=== PATIENT | male | born 2000 | race Caucasian/White ===

== ENCOUNTER 2020-06-02 18:07 | Emergency (ER) | payer OTHER ==
[~2020-06-02] VITALS: Ht 193 cm; Wt 136.3 kg
[2020-06-02 18:15] VITALS: BP 157/76
--- NOTE | 2020-06-02 18:35 | PHYS DOC ---
Past Medical History Past Medical History: No Pertinent History Past Surgical History: No Surgical History Smoking Status: Never Smoker Alcohol Use: None Drug Use: None General Adult EDM: Chief Complaint: FOREIGNBODY EAR HPI: HPI: Patient is a 20-year-old male who presents with chief complaint of concern for foreign body in his left ear. 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 He states this occurred approximately 29 hours ago. He states that he has been irrigating with hydrogen peroxide. He states he was seen at urgent care facility yesterday who told him that he may still have retained foreign body. He states he does still have sensation of retained foreign body. Denies any ear pain. Denies hearing changes. Denies drainage from the ear. Denies fevers or vomiting. Denies headache. Denies using Q-tips or any objects to try remove the debris. Review of Systems: Review of Systems: Constitutional: Denies fever or chills. [] Eyes: Denies change in visual acuity. [] HENT: Denies nasal congestion or sore throat. [] Respiratory: Denies cough or shortness of breath. [] Cardiovascular: Denies chest pain or edema. [] GI: Denies abdominal pain, nausea, vomiting, bloody stools or diarrhea. [] : Denies dysuria. [] Musculoskeletal: Denies back pain or joint pain. [] Integument: Denies rash. [] Neurologic: Denies headache, focal weakness or sensory changes. [] Endocrine: Denies polyuria or polydipsia. [] Lymphatic: Denies swollen glands. [] Psychiatric: Denies depression or anxiety. [] Heart Score: Risk Factors: Risk Factors: DM, Current or recent (<one month) smoker, HTN, HLP, family history of CAD, obesity. Risk Scores: Score 0 - 3: 2.5% MACE over next 6 weeks - Discharge Home Score 4 - 6: 20.3% MACE over next 6 weeks - Admit for Clinical Observation Score 7 - 10: 72.7% MACE over next 6 weeks - Early Invasive Strategies Physical Exam: PE: Constitutional: Well developed, well nourished, no acute distress, non-toxic appearance. [] HENT: Normocephalic, atraumatic, bilateral external ears normal, oropharynx moist, no oral exudates, nose normal. External ear canal without any visualized foreign bodies. Tympanic membrane appears clear with positive light reflex. No signs of bulging. No erythema. No fluid behind the tympanic membrane. Eyes: PERRLA, EOMI, conjunctiva normal, no discharge. [] Neck: Normal range of motion, no tenderness, supple, no stridor. [] Cardiovascular:Heart rate regular rhythm, no murmur [] Lungs & Thorax: Bilateral breath sounds clear to auscultation [] Abdomen: soft, no tenderness, no masses, no pulsatile masses. [] Skin: Warm, dry, no erythema, no rash. [] Back: No tenderness, no CVA tenderness. [] Extremities: No tenderness, no cyanosis, no clubbing, ROM intact, no edema. [] Neurologic: Alert and oriented X 3, normal motor function, normal sensory function, no focal deficits noted. [] Psychologic: Affect normal, judgement normal, mood normal. [] Current Patient Data: Vital Signs: Vital Signs Date Time Temp Pulse Resp B/P (MAP) Pulse Ox O2 Delivery O2 Flow Rate FiO2 06/02/20 18:15 98.5 77 16 157/76 (103) 98 Room Air 98.5 EKG: EKG: [] Radiology/Procedures: Radiology/Procedures: [] Course & Med Decision Making: Course & Med Decision Making Pertinent Labs and Imaging studies reviewed. (See chart for details) [] Patient is a well-appearing 20-year-old male who presents with chief compl aint of concern for foreign body in his left ear. My visual inspection I see no retained foreign body. Tympanic membrane appears well with positive light reflex. Based on the patient's reported size of foreign body I do not feel this will likely cause any damage. No signs of tympanic membrane rupture. No signs of infection therefore antibiotics will be deferred. He will be given referral to ENT specialist. Return precautions discussed and understood. Stable for discharge home. Kristyn Disclaimer: Kristyn Disclaimer: This electronic medical record was generated, in whole or in part, using a voice recognition dictation system. Departure Departure Impression: Primary Impression: Foreign body in left ear, subsequent encounter Disposition: HOME, SELF-CARE Condition: STABLE Referrals: NO PCP (PCP) BRITTANY REED MD Patient Instructions: Ear Foreign Body TAI LEONARD DO Jun 02, 2020 18:35
== END 2020-06-02 18:39 | disposition home or self-care (01) ==
LOC: ER 18:07
DX: T16.2XXA Foreign body in left ear, initial encounter (principal); X58.XXXA Exposure to other specified factors, initial encounter; Y93.89 Activity, other specified; Y92.69 Other specified industrial and construction area as the place of occurrence of the external cause; Y99.0 Civilian activity done for income or pay
CPT/HCPCS: 99281